=== PATIENT | female | born 2000 | race Caucasian/White ===

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

== ENCOUNTER 2021-12-05 05:26 | Inpatient (IN) ==
--- NOTE | 2021-12-02 14:54 | PAT Medication Instructions ---
Medication Instructions Date of Service December 02, 2021 Home Medications Medication Instructions Recorded ondansetron HCl 4 mg tablet 4 mg PO Q6H PRN #20 tab 07/16/21 (Zofran) prenat.vits,latoya,[id number]-sptlv 1 tab PO DAILY ondansetron HCl 4 mg tablet (Zofran) 4 mg PO Q6H PRN calcium carbonate 300 mg (750 mg) chewable tablet (Tums) 300 mg PO QID PRN DO NOT take the morning of surgery prenat.vits,latoya,dwv-fygh-dbceq 1 tab PO DAILY calcium carbonate 300 mg (750 mg) chewable tablet (Tums) 300 mg PO QID PRN Take morning of surgery With a small sip of water, OTHERWISE NOTHING TO EAT OR DRINK AFTER MIDNIGHT: ondansetron HCl 4 mg tablet (Zofran) 4 mg PO Q6H PRN (if needed) Take evening before surgery ondansetron HCl 4 mg tablet (Zofran) 4 mg PO Q6H PRN (if needed) Other Notes If you have any questions please call us at [phone] or [phone] or [phone] or [phone]
--- NOTE | 2021-12-04 13:23 | Anesthesiology Consultation ---
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 No known Covid positive exposures or Covid related symptoms. No known Covid infection in the past 90 days.Pt is NOT vaccinated for Covid. Preop Covid testing done 12/03/21 = negative. Educated on importance of self quarantining, social distancing and wearing mask in public for the patient one week prior to surgery and after Covid testing done History Surgery Operation Date: 12/05/21 07:30 Proposed Procedures p Section (Delivery of Baby Through Abdominal Incision) - Karol Anderson MD, FACOG Height/Weight Height: 5 ft 3 in Weight: 146.057 kg Allergies Allergy/AdvReac Type Severity Reaction Status Date / Time No Known Drug Allergies Allergy Unknown Verified 12/04/21 11:41 Medications Home Medications Medication Instructions Recorded Confirmed Last Taken prenat.vits,latoya,wfr-ekot-fjdlo 1 tab PO DAILY 05/15/21 12/04/21 11/19/21 ondansetron HCl 4 mg tablet 4 mg PO Q6H PRN #20 tab 07/16/21 12/04/21 Unknown (Zofran) calcium carbonate 300 mg (750 mg) 300 mg PO QID PRN 12/02/21 12/04/21 Unknown chewable tablet (Tums) Past Medical History Medical History JUSTYN (generalized anxiety disorder) GERD (gastroesophageal reflux disease) Stable Chronic (even when not ) Hepatic steatosis History of COVID-04 Oct 2020 > not hospitalized Hypertension Gestational HTN Morbid obesity Exercise / Class Metabolic Activity II 4-5 Yardwork/Stairs/Walk up hill (one flight of stairs - mild SOB (only related), no chest pain ) Past Family History Family History Sister Allergic rhinitis Celiac disease Mother Diabetes Father Asthma Grandmother (Paternal) Hypertension Grandmother (Maternal) Breast cancer Lung cancer Other Dyslipidemia Endometriosis Denies family history of Ovarian cancer Prostate cancer Colorectal cancer Past Surgical History Surgical History No significant past surgical history Past Anesthesia History No Family Hx of Anesthesia Complications History of PONV Hx of Motion Sickness Social History Smoking Status: Never smoker Do You Dip or Chew Tobacco: No Hx Alcohol Use: No Hx Substance Use: No substance use type: does not use Review of Systems Hx of snoring - - no witnessed apnea- no hx of sleep study Patient denies chest pain, shortness of breath, dyspnea on exertion, cough, wheezing, palpitations. No hx of seizures, stroke, [place]. No hx of blood clots or blood transfusions Physical Exam Vital Signs VITALS BP 140/87 P 97 TEMP 98.2 SP02 98% RESP 16 Constitutional no acute distress ENMT Mouth: no TMJ clicking Thyromental Distance: > or= 3.5 Finger Breadths (3.5) Mallampati Class: II Neck + thick neck; neck extension not limited Respiratory normal respiratory effort; no respiratory distress Auscultation: lungs clear to auscultation bilaterally; no wheezes Cardiovascular Rate/Rhythm: regular rate and regular rhythm Heart Sounds: no murmur Vessels: no carotid bruit Musculoskeletal Spine: no pain with cervical ROM Extremities: extremities normal to inspection Psychiatric Orientation: alert
--- NOTE | 2021-12-04 23:00 | History & Physical Report ---
Date of Service December 04, 2021 Assessment & Plan (1) Gestational hypertension: Plan: IUP at 37 weeks that meets criteria for gestational hypertension but infant in persistent breech presentation. she is not interested in external version. the procedure and its risks are reviewed with the patient and all of her questions answered to her satisfaction and she is willing to proceed. (2) Breech presentation: History of Present Illness Primary Care Provider: Noe Mckinney DO Patient is a 21 y white female EDC 12/26/21 who presents at 37 weeks for primary LTCS because of persistent breech presentation and gestational hypertension. GBS -negative. also complicated by LGA fetus, generalized anxiety disorder and morbid obesity. Allergies Allergy/AdvReac Type Severity Reaction Status Date / Time No Known Drug Allergies Allergy Unknown Unknown Verified 12/04/21 14:45 Home Medications Medication Instructions Recorded Confirmed Type prenat.vits,latoya,oxv-jsoj-mpiki 1 tab PO DAILY 05/15/21 12/04/21 History ondansetron HCl 4 mg tablet 4 mg PO Q6H PRN #20 tab 07/16/21 12/04/21 Rx (Zofran) calcium carbonate 300 mg (750 mg) 300 mg PO QID PRN 12/02/21 12/04/21 History chewable tablet (Tums) Patient History Medical History JUSTYN (generalized anxiety disorder) GERD (gastroesophageal reflux disease) Stable Chronic (even when not ) Hepatic steatosis History of COVID-04 Oct 2020 > not hospitalized Hypertension Gestational HTN Morbid obesity Surgical History No significant past surgical history Family History Sister Allergic rhinitis Celiac disease Mother Diabetes Father Asthma Grandmother (Paternal) Hypertension Grandmother (Maternal) Breast cancer Lung cancer Other Dyslipidemia Endometriosis Denies family history of Ovarian cancer Prostate cancer Colorectal cancer Social History Smoking Status: Never smoker Second Hand Exposure: Yes (as kid); Hx Alcohol Use: No Hx Substance Use: No Preferred Language: Uzbek Communication Ability: Effective Visual Impairment: Limited Hearing Ability: Normal Lift Team Technician Required: No Beliefs That Will Affect Care: None marital status: marital status details: Jason (22) [phone] Current Living Situation: Spouse Current Living Situation Comment: lives with spouse, 3 cats, sposue to change litter. 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 How many Children do You have: 0 Feels Safe at Home: Yes Childhood Exposure to Second-Hand Smoke: Yes caffeine: No Dental Care, Regularly: No Physical Activity Frequency: 1-2 Times per Week Seatbelt Use: always Sunscreen Use: No Assistive Devices: Glasses Review of Systems All systems reviewed & are unremarkable except as noted in HPI & below Physical Exam Constitutional: WD/WN, vitals as above Respiratory: normal respiratory effort, lungs clear to auscultation Cardiovascular: RRR, no murmur, no edema Psychiatric: A+Ox3, euthymic affect Genitourinary: OB Exam Abdomen: + fundal height (term /obese), + breech and + estimated weight (8-9 pounds) OB Exam Monitor Tracing: + external FHT monitor used, + external uterine monitor used, + category I and + normal FHT variability Coding Level of Care Code None Diagnoses Gestational hypertension O13.9 Breech presentation O32.1XX0
[2021-12-05] MEDS ORDERED: LACTATED RINGER'S 1,000 ML IV SCH (06:00)
[2021-12-05] MEDS ORDERED: CITRIC ACID/SODIUM CITRATE 15 ML UDC PO SCH (06:00)
[2021-12-05] MEDS ORDERED: ceFAZolin 3,000 MG in DEXTROSE 5% 50 ML IV SCH (06:00)
[2021-12-05 06:37] LABS: Basophils # (auto) 0.01 K/uL (0-0.2); Basophils % (auto) 0.1 %; Eosinophils # (auto) 0.08 K/uL (0-0.5); Eosinophils % (auto) 0.9 %; Hematocrit (blood only) 34.1 % (37-47); Hemoglobin 11.4 g/dL (12.0-16.0); Immature Granulocytes # (auto) 0.02 K/uL (0.00-0.02); Immature Granulocytes % (auto) 0.2 %; Lymphocytes # (auto) 2.29 K/uL (1.2-3.4); Lymphocytes % (auto) 25.6 %; Mean Corpuscular Hemoglobin 29.5 pg (25-34); Mean Corpuscular Hgb Conc 33.4 g/dL (32-36); Mean Corpuscular Volume 88.3 fL (80-100); Mean Platelet Volume 10.3 fL (7.4-10.4); Monocytes # (auto) 0.63 K/uL (0.11-0.59); Neutrophils # (auto) 5.93 K/uL (1.4-6.5); Neutrophils % (auto) 66.2 %; Platelet Count 221 K/uL (130-400); RDW Coefficient of Variation 15.8 % (11.5-14.5); RDW Standard Deviation 51.5 fL (36.4-46.3); Red Blood Count 3.86 M/uL (4.2-5.4); White Blood Count 8.96 K/uL (4.8-10.8)
[2021-12-05] MEDS ORDERED: fentaNYL citrate 100 MCG/2 ML VIAL ONE (07:10)
[2021-12-05] MEDS ORDERED: MoRPHine SULFATE PF 1 MG/ML 10 ML AMP/VIAL ONE (07:10)
--- NOTE | 2021-12-05 07:42 | History & Physical Bridge Note ---
Date of Service December 05, 2021 History & Physical Bridge Note I have examined the patient, reviewed the History & Physical and in the interval since the performance of the History & Physical I have noted the following changes of clinical significance: no changes noted
[2021-12-05] MEDS ORDERED: LIDOCAINE 1% LOCAL 20 ML VIAL ONE (07:58)
[2021-12-05] MEDS ORDERED: HYDROmorphone INJ 0.5 MG/0.5 ML SYR IV PRN (08:18)
[2021-12-05] MEDS ORDERED: NALOXONE HCL 0.08 MG in SYRINGE 1.8 ML IV PRN (08:18)
[2021-12-05] MEDS ORDERED: NALOXONE HCL 0.4 MG/1 ML VIAL/CARP IV PRN (08:18)
[2021-12-05] MEDS ORDERED: NALOXONE HCL 1 MG in SODIUM CHLORIDE 0.9% 1000ML 1,000 ML IV PRN (08:18)
[2021-12-05] MEDS ORDERED: diphenhydrAMINE 50 MG/ML VIAL IV PRN (08:18)
[2021-12-05] MEDS ORDERED: PROMETHAZINE HCL 25 MG in SODIUM CHLORIDE 0.9% 50 ML IV PRN (08:18)
[2021-12-05] MEDS ORDERED: ePHEDrine sulfate 50 MG/ML AMP IV PRN (08:18)
[2021-12-05] MEDS ORDERED: OXYTOCIN 10 UNITS/ML 10ML VIAL ONE (08:18)
[2021-12-05] MEDS ORDERED: ONDANSETRON INJ 2 MG/ML 2 ML VIAL ONE (08:18)
[2021-12-05] MEDS ORDERED: ACETAMINOPHEN 1000 MG/100 ML IV IV PRN (08:18)
[2021-12-05] MEDS ORDERED: NALBUPHINE HCL INJ 10 MG/ML AMP IV PRN (08:18)
[2021-12-05] MEDS ORDERED: ONDANSETRON INJ 2 MG/ML 2 ML VIAL IV PRN (08:18)
[2021-12-05] MEDS ORDERED: MoRPHine SULFATE PF 1 MG/ML 10 ML AMP/VIAL INT SPINAL ONE (08:18)
[2021-12-05] MEDS ORDERED: LACTATED RINGER'S 500 ML IV PRN (08:18)
[2021-12-05] MEDS ORDERED: DC INTRASPINAL MORPHINE SCH (08:30)
[2021-12-05] MEDS ORDERED: SODIUM CHLORIDE 0.9% 1000ML 1,000 ML IV SCH (08:30)
[2021-12-05] MEDS ORDERED: NO NARCOTICS OR SEDATIVES SCH (08:30)
[2021-12-05] MEDS ORDERED: KETOROLAC 30 MG/ML VIAL ONE (08:33)
[2021-12-05] MEDS ORDERED: PROMETHAZINE HCL INJ 25 MG/ML 1 ML VIAL ONE (08:37)
[2021-12-05] MEDS ORDERED: MIDAZOLAM HCL 1 MG/ML 2ML VIAL ONE (08:43)
[2021-12-05 09:06] LABS: Appearance Urine Clear (Clear); Bacteria Urine Automated 2+ (Negative); Bilirubin Urine Negative (Negative); Blood Urine Negative (Negative); Color Urine Yellow; Epithelial Cell Urine Auto >30 /lpf (0-5); Glucose Urine UA Negative (Negative); Ketones Urine Negative (Negative); Leukocyte Esterase Urine Trace (Negative); Nitrite Urine Negative (Negative); Protein Urine Negative (Negative); RBC Urine Automated 0-4 /hpf (0-4); Urobilinogen Urine Negative (Negative); pH Urine 6.5 (4.5-7.5)
--- NOTE | 2021-12-05 09:25 | Operative Report ---
PG Post Operative Report Pre & Post Diagnosis Operation Date: 12/05/21 07:30 Pre-Op Diagnosis: Gestational HTN Breech Presentation Post-Op Diagnosis: Same as Pre op I identified the patient and participated in the time-out.: Yes Procedure Operation Date: 12/05/21 07:30 Actual Procedures p Section in LD; Live male child at 0823(Bilateral) - Karol Yo MD, FACOG Surgeon Karol Anderson MD, FACOG Hand Cigar Making Supervisor Kike Murdock MD and Herminia Christina MD Estimated Blood Loss 500 Findings Consistent with Post-Op Diagnosis bilateral ovaries and tubes are normal. uterus gravid and consistent with term Specimens POC Drains Hopkins catheter to straight drainage - clear urine Anesthesia Type Spinal Complications none Disposition Accompanied Patient To Recovery: Yes Indications Patient is a 21-year-old 1 P0 white female who presents at 37 weeks for primary section because of persistent breech presentation and gestational hypertension. Description of Procedure After patient received adequate subarachnoid block she was prepped and draped in usual sterile fashion. A transverse incision was made at the level of the anterior superior iliac spines. This was carried to the fascia. The fascia was entered with a scalpel and extended with Banks scissors transversely. Rand's clamps were then used to grasp the edges of the fascia and the underlying rectus muscles bluntly and sharply dissected off of the overlying fascia. The rectus muscles were bluntly divided in the midline and the underlying peritoneum also entered bluntly. The bladder was then taken down off the anterior surface of the uterus with Metzenbaum scissors and placed behind the bladder blade. The lower uterine segment was entered with a scalpel and extended transversely. Infant was delivered from the varghese breech presentation with moderate fundal pressure. He was vigorous and crying upon delivery. The cord was then clamped and cut. Placenta was then expressed intact with a three-vessel cord. The uterus was then exteriorized and covered with a clean lap sponge. The uterine cavity was explored and found to be free of any placental tissue or membranes. The uterus was then closed in 2 layers in a running locking imbricating fashion with 0 chromic. Hemostasis was noted to be excellent. After examining the ovaries and tubes the uterus was placed back in the abdominal cavity. The incision was examined once more and continue to have excellent hemostasis. The fascia was then closed in a running fashion with 0 Vicryl. Elvira's fascia was reapproximated using a running stitch of 2-0 chromic. After irrigating the adipose layer, the skin edges were reapproximated using a subcuticular stitch of 4-0 Vicryl. José Luis dressing was then applied to the incision. Urine was clear at the end of the case mother and infant were doing well upon arrival in recovery room. I attest to the content of the Intraoperative Record and any orders documented therein. Any exceptions are noted below. OB Procedure Charges 04339
[2021-12-05] MEDS ORDERED: ACETAMINOPHEN 325 MG TAB PO PRN (10:20)
[2021-12-05] MEDS ORDERED: HYDROCORTISONE ACETATE 25 MG SUPP PR PRN (10:20)
[2021-12-05] MEDS ORDERED: DIPHTHERIA/TETANUS/PERTUSSIS 0.5 ML SYR/VIAL IM ONE (10:20)
[2021-12-05] MEDS ORDERED: MAGNESIUM HYDROXIDE SUSP 30 ML UDC PO PRN (10:20)
[2021-12-05] MEDS ORDERED: SENNA 8.6 MG TAB PO PRN (10:20)
[2021-12-05] MEDS ORDERED: BENZOCAINE 20% AER SPR 82.5 GM CAN EXT PRN (10:20)
[2021-12-05] MEDS: OXYTOCIN 20 UNITS in LACTATED RINGER'S 1,000 ML IV SCH ×2 (11:46→20:35)
--- NOTE | 2021-12-05 11:58 | Anesthesiology Progress Note ---
Date of Service December 05, 2021 Anesthesia Post Procedure Vital Signs Vital Signs: Temp Pulse Resp BP Pulse Ox 12/05/21 11:26 89 99 12/05/21 11:21 93 H 140/82 100 12/05/21 11:16 85 99 12/05/21 11:11 82 98 12/05/21 11:06 90 100 12/05/21 11:01 87 100 12/05/21 10:56 77 142/71 H 100 12/05/21 10:51 79 99 12/05/21 10:46 81 100 12/05/21 10:45 83 20 149/72 H 100 12/05/21 10:42 75 144/75 H 12/05/21 10:41 82 100 12/05/21 10:36 84 100 12/05/21 10:31 81 100 12/05/21 10:26 82 137/78 100 12/05/21 10:21 88 100 12/05/21 10:16 79 138/79 100 12/05/21 10:15 79 20 138/79 100 12/05/21 10:11 75 100 12/05/21 10:07 76 138/95 12/05/21 10:06 79 100 12/05/21 10:05 81 18 138/95 100 12/05/21 10:01 81 100 12/05/21 09:56 77 160/64 H 100 12/05/21 09:55 77 22 160/64 H 100 12/05/21 09:51 82 100 12/05/21 09:47 71 151/78 H 12/05/21 09:46 81 100 12/05/21 09:45 75 16 151/78 H 100 12/05/21 09:41 83 100 12/05/21 09:37 77 143/71 H 12/05/21 09:36 84 100 12/05/21 09:35 81 20 143/71 H 100 12/05/21 09:31 84 100 12/05/21 09:26 79 134/79 100 12/05/21 09:25 79 20 134/79 100 12/05/21 09:21 80 100 12/05/21 09:16 82 100 12/05/21 09:15 36.8 C 80 25 H 134/83 100 12/05/21 05:56 104 H 155/80 H 12/05/21 05:54 36.8 C 108 H 18 182/93 H 12/05/21 05:44 36.8 C 108 H 18 182/93 H Transfer of Care Handoff Completed per policy Notes Mental Status: alert / awake / arousable and participated in evaluation Nausea / Vomiting: adequately controlled Pain: adequately controlled Airway Patency, RR, SpO2: stable & adequate BP & HR: stable & adequate Hydration State: stable & adequate Neuraxial Anesthesia: was administered and sensory block resolved Anesthetic Complications: no major complications apparent and Pt Satisfied with anesthetic care
[2021-12-05] MEDS: KETOROLAC 30 MG/ML VIAL IV PRN (14:02)
[2021-12-05] MEDS: SIMETHICONE 80 MG CHEW PO SCH ×3 (14:03→21:02)
[2021-12-05] MEDS: DOCUSATE SODIUM 100 MG CAP PO SCH (21:02)
[2021-12-06] MEDS: KETOROLAC 30 MG/ML VIAL IV PRN (00:31)
[2021-12-06] MEDS ORDERED: diphenhydrAMINE Capsule 25 MG CAP PO PRN (02:18)
[2021-12-06] MEDS ORDERED: PROMETHAZINE HCL 25 MG in SODIUM CHLORIDE 0.9% 50 ML IV PRN (02:18)
[2021-12-06] MEDS ORDERED: diphenhydrAMINE 50 MG/ML VIAL IV PRN (02:18)
[2021-12-06] MEDS ORDERED: ONDANSETRON INJ 2 MG/ML 2 ML VIAL IV PRN (02:18)
[2021-12-06] MEDS ORDERED: LACTATED RINGER'S 1,000 ML IV SCH (02:30)
[2021-12-06] MEDS ORDERED: CALCIUM CARBONATE 500 MG CHEWABLE TAB PO PRN (04:47)
--- NOTE | 2021-12-06 06:38 | Obstetrical Progress Note ---
Date of Service <Herminia SanfordDO - Last Filed: 12/06/21 07:53> December 06, 2021 Assessment & Plan <Herminia SanfordDO - Last Filed: 12/06/21 07:53> (1) Encounter for care and examination after delivery: (2) Gestational hypertension: 21 yo post op day1 from c/s due to breech presentation, complicated by gHTN, doing well. -Continue routine post care. -vital signs reviewed and WNL (Tmax 36.9) -Blood Type B+, GBS unknown, Rubella immune -Encourage ambulation, monitor and control pain with Motrin, tylenol PRN, resume regular diet, monitor lochia -encourage formula feeding -hemoglobin 11.4 Day #:: 1 <Karol Anderson MD, FACOG - Last Filed: 12/06/21 11:20> (1) Encounter for care and examination after delivery: (2) Gestational hypertension: Subjective <Herminia Christina DO - Last Filed: 12/06/21 07:53> Ambulation: limited ambulation Voiding: voiding difficulty Diet Tolerance:: regular diet Lochia:: Moderate Feeding Type:: bottle feeding Current Pain Level(1-10): 3 Review of Systems Denies fever, chills, sweats Denies shortness of breath, difficulty breathing, chest pain, palpitations, chest pressure. Denies breast pain. Denies dysuria. Denies headache or changes in vision. Physical Exam <Herminia SanfordDO - Last Filed: 12/06/21 07:53> General: Alert, oriented. No acute distress. Cardiac: Regular rate and rhythm, no murmurs/rubs/gallops. Respiratory: Clear to auscultation bilaterally a/p, no wheezes/rales/rhonchi. No increased work of breathing. Symmetrical chest rise. No respiratory distress. Abdomen: Soft, nontender, nondistended. Bowel sounds present. Uterus: Uterine fundus firm, palpable at umbilicus. Surgical scar clean and healing well. Lower Extremities: No lower extremity edema or swelling. No deep calf pain. Lanette's negative bilaterally. Results & Data ([facility]) <Herminia Christina DO - Last Filed: 12/06/21 07:53> Vital Signs (Past 12 Hours) Vital Signs Temp Pulse Resp BP Pulse Ox 12/06/21 04:25 36.9 C 91 H 18 116/82 100 12/06/21 03:52 36.7 C 93 H 18 128/83 100 12/06/21 01:45 18 96 12/06/21 00:45 18 96 12/05/21 23:45 18 98 12/05/21 23:33 36.7 C 93 H 18 117/77 100 12/05/21 22:59 18 95 12/05/21 21:45 95 H 20 L 12/05/21 20:45 18 96 12/05/21 20:40 18 95 12/05/21 19:40 36.7 C 84 16 133/83 95 <Karol Anderson MD, FACOG - Last Filed: 12/06/21 11:20> Co-Signing Physician Notes Resident Physician Supervision Note: I interviewed and examined the patient. Discussed with Dr. Christina and agree with findings and plan as documented in the note. Any exceptions or clarifications are listed here: [None] Documented By: Karol Anderson MD, FACOG Resident Activity Tracking <Herminia Christina DO - Last Filed: 12/06/21 07:53> Resident Involvement: Resident Care Provided Care Provided: Adult Hospital Medicine and OB Delivery
[2021-12-06 06:49] LABS: Basophils # (auto) 0.01 K/uL (0-0.2); Basophils % (auto) 0.1 %; Eosinophils # (auto) 0.09 K/uL (0-0.5); Eosinophils % (auto) 1.1 %; Hematocrit (blood only) 31.3 % (37-47); Hemoglobin 10.5 g/dL (12.0-16.0); Immature Granulocytes # (auto) 0.02 K/uL (0.00-0.02); Immature Granulocytes % (auto) 0.2 %; Lymphocytes # (auto) 1.73 K/uL (1.2-3.4); Lymphocytes % (auto) 20.6 %; Mean Corpuscular Hemoglobin 29.2 pg (25-34); Mean Corpuscular Hgb Conc 33.5 g/dL (32-36); Mean Corpuscular Volume 86.9 fL (80-100); Monocytes # (auto) 0.49 K/uL (0.11-0.59); Monocytes % (auto) 5.8 %; Neutrophils # (auto) 6.07 K/uL (1.4-6.5); Neutrophils % (auto) 72.2 %; Platelet Count 187 K/uL (130-400); RDW Coefficient of Variation 15.6 % (11.5-14.5); RDW Standard Deviation 50.2 fL (36.4-46.3); White Blood Count 8.41 K/uL (4.8-10.8)
[2021-12-06] MEDS: DOCUSATE SODIUM 100 MG CAP PO SCH ×2 (08:37→21:12)
[2021-12-06] MEDS: SIMETHICONE 80 MG CHEW PO SCH ×4 (08:37→21:12)
[2021-12-06] MEDS: FERROUS SULFATE 325 MG TAB PO SCH (08:37)
[2021-12-06] MEDS: PRENATAL VITAMIN 1 TAB PO SCH (08:38)
[2021-12-06] MEDS: oxyCODONE/ACETAMINOPHEN 5mg/325mg TAB PO PRN ×4 (08:38→23:12)
[2021-12-06] MEDS: IBUPROFEN 600 MG TAB PO PRN ×4 (08:38→21:13)
[2021-12-06] MEDS ORDERED: bisacodyL 5 MG TABEC PO SCH (20:00)
[2021-12-07] MEDS: IBUPROFEN 600 MG TAB PO PRN ×5 (05:45→23:15)
[2021-12-07] MEDS: oxyCODONE/ACETAMINOPHEN 5mg/325mg TAB PO PRN ×5 (05:45→23:15)
[2021-12-07 06:38] LABS: Hematocrit (blood only) 33.1 % (37-47); Hemoglobin 10.8 g/dL (12.0-16.0)
[2021-12-07] MEDS ORDERED: bisacodyL 10 MG SUPP PR PRN (08:57)
--- NOTE | 2021-12-07 09:10 | Obstetrical Progress Note ---
Date of Service December 07, 2021 Assessment & Plan (1) Encounter for care and examination after delivery: Wishes to stay until POD#3 and have GAIL removed in office on POD#7 (2) Gestational hypertension: Subjective Ambulation: ambulating normally Voiding: no voiding problems Passing Gas:: Yes Diet Tolerance:: regular diet Lochia:: Small Feeding Type:: bottle feeding Current Pain Level(1-10): 0 Physical Exam Constitutional WD/WN, vitals as above Eyes PERRL, conjunctivae normal, anicteric sclerae ENMT external ear and nose normal, oropharynx normal Neck trachea midline, no thyromegaly Respiratory normal respiratory effort and able to speak in complete sentences; no respiratory distress, no labored breathing and does not use accessory muscles Cardiovascular Rate/Rhythm: regular rate and regular rhythm Extremities: no calf tenderness and no pedal edema Chest (Breasts) Breast: normal inspection of breasts Gastrointestinal (Abdomen) Inspection/Auscultation: abdomen normal to inspection; abdomen not distended c/d/i with GAIL in place Musculoskeletal no cyanosis or clubbing, extremities motor strength 5/5 Skin no rashes, warm and dry Neurologic patellar DTR's 2+ bilat, sensation intact Psychiatric A+Ox3, euthymic affect Genitourinary Speculum/Bimanual Exam: uterus nontender OB Exam Abdomen: + fundal height (at umbilicus) Fundus: + firm Results & Data ([facility]) Vital Signs (Past 12 Hours) Vital Signs Temp Pulse Resp BP Pulse Ox 12/07/21 07:15 98.4 F 99 H 18 123/81 99 12/06/21 23:07 98.4 F 93 H 18 125/81 99
[2021-12-07] MEDS: FERROUS SULFATE 325 MG TAB PO SCH (09:32)
[2021-12-07] MEDS: SIMETHICONE 80 MG CHEW PO SCH ×4 (09:32→20:21)
[2021-12-07] MEDS: PRENATAL VITAMIN 1 TAB PO SCH (09:33)
[2021-12-07] MEDS: DOCUSATE SODIUM 100 MG CAP PO SCH ×2 (09:33→20:21)
[2021-12-08] MEDS: IBUPROFEN 600 MG TAB PO PRN ×2 (04:04→07:56)
[2021-12-08] MEDS: oxyCODONE/ACETAMINOPHEN 5mg/325mg TAB PO PRN ×2 (04:04→07:55)
--- NOTE | 2021-12-08 07:19 | Obstetrical Progress Note ---
Date of Service December 08, 2021 Assessment & Plan (1) Encounter for care and examination after delivery: POD#3 doing well. Plans for DC home today - discussed instructions. Rx Percocet #20 tabs to pharmacy on file. Followup 6w PP. Subjective Ambulation: ambulating normally Voiding: no voiding problems Diet Tolerance:: regular diet Lochia:: Moderate Review of Systems All systems reviewed & are unremarkable except as noted in HPI & below Physical Exam Constitutional WD/WN, vitals as above no acute distress Respiratory normal respiratory effort Cardiovascular Rate/Rhythm: regular rate and regular rhythm Gastrointestinal (Abdomen) Inspection/Auscultation: abdomen normal to inspection; abdomen not distended Percussion/Palpation: abdomen soft GAIL dressing in place, CDI Genitourinary OB Exam Abdomen: + fundal height Fundus: + firm; not tender Results & Data ([facility]) Vital Signs (Past 12 Hours) Vital Signs Temp Pulse Resp BP Pulse Ox 12/07/21 22:57 37.6 C H 107 H 18 131/85 100 12/07/21 19:25 36.9 C 102 H 20 137/77
[2021-12-08] MEDS: SIMETHICONE 80 MG CHEW PO SCH (07:55)
[2021-12-08] MEDS: FERROUS SULFATE 325 MG TAB PO SCH (07:55)
[2021-12-08] MEDS: PRENATAL VITAMIN 1 TAB PO SCH (07:55)
[2021-12-08] MEDS: DOCUSATE SODIUM 100 MG CAP PO SCH (07:55)
--- NOTE | 2021-12-10 10:33 | Discharge Summary (DS) ---
DATE OF ADMISSION: 12/05/2021 DATE OF DISCHARGE: 12/08/2021 PRINCIPAL DIAGNOSES: Intrauterine at 37+ weeks, gestational hypertension and persistent breech presentation with a large for gestational age baby. HISTORY AND HOSPITAL COURSE: The patient is a 21-year-old 1, para 0 white female who presented at 37 weeks for primary section because of persistent breech presentation and gestational hypertension. She underwent a low transverse cervical section without any complications for delivery of an 8 pound 15 ounce male infant from the breech presentation. She had an uncomplicated postop course. She was eating regular diet on her first postop day, ambulating and voiding without difficulty as well. She remained afebrile throughout her hospital stay. Hemoglobin on admission was 11.4, hematocrit 34.1 with a white count of 8960. First postop day, hemoglobin 10.5, hematocrit 31.3 with a white count of 8400. Second postop day, hemoglobin 10.8, hematocrit 33.1. She was sent home in good condition with prescriptions for Percocet 1-2 tablets p.o. q.4 hours p.r.n. pain, Motrin 600 mg p.o. q.4 hours p.r.n. pain. She will have her GAIL dressing removed in the office in 7 days per her request. She is then to be seen in the office in 6 weeks for a followup visit. She is to call for a temperature of 101 degrees or higher, heavy vaginal bleeding, burning with urination, increased redness, drainage or pain in her incision, calf tenderness, any preeclampsia type symptoms or any other concerns. Job ID: [id number] [facility]
== END 2021-12-08 10:50 | disposition home or self-care (01) | DRG 788 ==
LOC: 4S1 05:26 → EDSTATUS 09:00 → 4E2 11:45

== ENCOUNTER 2024-09-28 05:14 | Inpatient (IN) ==
--- NOTE | 2024-09-15 10:50 | Anesthesiology Consultation ---
Date of Service September 15, 2024 Assessment & Plan (1) Encounter for pre-operative examination: Infectious disease screening: Per assessment on 09/15/24- No known recent infectious disease contacts or current infectious disease symptoms. 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 Surgery Operation Date: 09/28/24 07:30 Proposed Procedures p Section (Delivery of Baby Through Abdominal Incision) - Sakina King MD Height/Weight Height: 5 ft 3 in Weight: 147.418 kg Allergies Allergy/AdvReac Type Severity Reaction Status Date / Time No Known Drug Allergies Allergy Unknown Unknown Verified 09/15/24 10:16 Medications Home Medications Medication Instructions Recorded Confirmed Last Taken [id number] 400 mcg-om3 35 mg-dha 25 1 tab PO QAM 02/07/24 09/15/24 Unknown mg-epa 5 mg-fish oil chewable tablet aspirin 81 mg capsule 81 mg PO DAILY 07/28/24 09/15/24 Unknown acetone (urine) test (Ketone Urine #50 ea 08/17/24 09/08/24 Unknown Test strips) blood sugar diagnostic (OneTouch #150 ea 08/17/24 09/08/24 Unknown Verio test strips) blood-glucose meter (OneTouch #1 ea 08/17/24 09/08/24 Unknown Verio Reflect Meter) lancets 33 gauge (OneTouch Delica #150 ea 08/17/24 09/08/24 Unknown Plus Lancet) calcium carbonate (Tums) 200 mg PO BID PRN Acid Reflux 09/15/24 09/15/24 Unknown Past Medical History Medical History Anxiety Cholecystitis, chronic h/o GERD (gastroesophageal reflux disease) Stable Chronic (even when not ) Gestational diabetes diet controlled Gestational hypertension Hepatic steatosis History of COVID-04 Oct 2020 > not hospitalized Morbid obesity Past Family History Family History Sister Allergic rhinitis Celiac disease Mother Diabetes Father Asthma Grandmother (Paternal) Hypertension Grandmother (Maternal) Breast cancer Lung cancer Other Dyslipidemia Endometriosis No family history of adverse response to anesthesia Denies family history of Ovarian cancer Prostate cancer Myocardial infarction Colorectal cancer Stroke Past Surgical History Surgical History S/P section Social History Smoking Status: Never smoker Do You Dip or Chew Tobacco: No Hx Alcohol Use: No Hx Substance Use: No substance use type: does not use Lab Results Anesthesia Preop Results Results Anesthesia Widget: Hgb 11.2 g/dl (12.0-16.0) L 07/21/24 Hct 33.3 % (37.0-47.0) L 07/21/24 Testing Echocardiogram Date: 10/31/20 EF 55-60%. No RWMA. No signficant valvular disease. "Normal echocardiogram."
[2024-09-28] MEDS ORDERED: SODIUM CHLORIDE 0.9% 50 ML IV PRN (05:22)
[2024-09-28] MEDS ORDERED: SODIUM CHLORIDE 0.9% 100 ML IV PRN (05:22)
[2024-09-28] MEDS ORDERED: SODIUM CHLORIDE 0.9% 1,000 ML IV SCH ×3 (06:00→09:27)
[2024-09-28] MEDS ORDERED: CITRIC ACID/SODIUM CITRATE 15 ML UDC PO SCH (06:00)
[2024-09-28] MEDS ORDERED: ACETAMINOPHEN 500 MG TAB PO SCH (06:00)
[2024-09-28 06:05] LABS: Appearance Urine Clear (Clear); Bacteria Urine Automated 1+ (None Seen); Bilirubin Urine Negative (Negative); Blood Urine 1+ (Negative); Cast Urine Automated 0-2 /lpf (0-2); Color Urine Yellow; Epithelial Cell Urine Auto 0-2 /hpf (0-2); Glucose Urine UA Negative (Negative); Ketones Urine Negative (Negative); Leukocyte Esterase Urine Negative (Negative); Nitrite Urine Negative (Negative); Protein Urine Negative (Negative); RBC Urine Automated 0-2 /hpf (0-2); Urobilinogen Urine Negative (Negative); WBC Urine Automated 0-5 /hpf (0-5); pH Urine 6.5 (4.5-7.5)
[2024-09-28] MEDS: LACTATED RINGER'S 1,000 ML IV SCH (06:07)
[2024-09-28 06:13] LABS: Hematocrit (blood only) 33.6 % (37.0-47.0); Red Blood Count 4.05 M/uL (4.20-5.40); White Blood Count 8.13 K/ul (4.8-10.8)
[2024-09-28 06:14] LABS: Basophils # (auto) 0.01 K/uL (0.00-0.20); Basophils % (auto) 0.1 %; Eosinophils # (auto) 0.06 K/uL (0.00-0.50); Eosinophils % (auto) 0.7 %; Immature Granulocytes # (auto) 0.04 K/uL (0.01-0.20); Immature Granulocytes % (auto) 0.5 %; Lymphocytes # (auto) 1.35 K/uL (1.20-3.40); Lymphocytes % (auto) 16.6 %; Mean Corpuscular Hemoglobin 27.2 pg (25.0-34.0); Mean Corpuscular Hgb Conc 32.7 g/dL (32.0-36.0); Mean Platelet Volume 9.9 fL (9.4-12.4); Monocytes # (auto) 0.45 K/uL (0.11-0.59); Monocytes % (auto) 5.5 %; Neutrophils # (auto) 6.22 K/uL (1.40-6.50); Neutrophils % (auto) 76.6 %; Platelet Count 202 K/uL (130-400); RDW Coefficient of Variation 16.3 % (11.5-14.5); RDW Standard Deviation 48.8 fL (36.4-46.3)
[2024-09-28] MEDS: ACETAMINOPHEN 500 MG TAB PO SCH (06:25)
[2024-09-28] MEDS ORDERED: LACTATED RINGER'S 1,000 ML IV SCH ×3 (06:30→09:27)
--- NOTE | 2024-09-28 07:17 | History & Physical Bridge Note ---
Date of Service September 28, 2024 History & Physical Bridge Note I have examined the patient, reviewed the History & Physical and in the interval since the performance of the History & Physical I have noted the following changes of clinical significance: no changes noted
[2024-09-28] MEDS: CITRIC ACID/SODIUM CITRATE 15 ML UDC PO SCH (07:33)
[2024-09-28] MEDS: ceFAZolin 3,000 MG/72.5 ML BAG IV SCH (07:33)
[2024-09-28] MEDS ORDERED: MoRPHine SULFATE PF 1 MG/ML 10 ML AMP/VIAL ONE (07:36)
[2024-09-28] MEDS ORDERED: PHENYLEPHRINE HCL 25 MG/250 ML NSS IV ONE (07:36)
[2024-09-28] MEDS ORDERED: OXYTOCIN 10 UNITS/ML VIAL ONE ×2 (08:08→08:15)
[2024-09-28] MEDS ORDERED: ONDANSETRON INJ 2 MG/ML 2 ML VIAL ONE ×2 (08:11→08:15)
[2024-09-28] MEDS: OXYTOCIN 20 UNITS/LR 1,002 ML IV SCH (08:50)
--- NOTE | 2024-09-28 08:52 | Operative Report ---
PG Post Operative Report Pre & Post Diagnosis Operation Date: 09/28/24 07:30 SIUP at Term Prior Declines TOLAC/ I identified the patient and participated in the time-out.: Yes Procedure Operation Date: 09/28/24 07:30 Repeat Low Transverse Section Surgeon Sakina King MD Wreath And Garland Maker Kay Estimated Blood Loss 428 Findings Consistent with Post-Op Diagnosis Specimens Placenta, cord blood Anesthesia Type Spinal Complications none Disposition Accompanied Patient To Recovery: Yes Disposition: L&D Description of Procedure The patient was placed operating table in the supine position with a leftward tilt. She was prepped and draped in standard sterile fashion. A Pannus Retractor was used. The anesthetic was tested and found to be adequate. A time-out was held, identifying correct patient, procedure, positioning and preoperative antibiotics. There were no concerns. A Pfannenstiel skin incision was made with a knife at the appropriate location based on palpation of the ASIS bilaterally, and taken down to the underlying l juan of fascia. Incision was created through the stick-on drape without freeing it from either edge of the skin, to prevent loss of fluids onto the padding beneath the patient and ensure QBL measurement would be complete. The fascia was incised in the midline with the knife and taken out laterally with scissors. The superior edge of the fascial incision was grasped, elevated and dissected off the underlying rectus both superiorly and inferiorly. The muscles were bluntly in the midline. The peritoneum was entered bluntly. The incision was then stretched. After palpation of the abdominal cavity to ensure there were no adhesions, an Micheal O-Ring retractor was deployed. The bladder retractor was placed. The vesicouterine peritoneum was identified, entered with scissors and taken out laterally with scissors. The bladder flap was created digitally. A hysterotomy incision was created transversely in the lower uterine segment, final entry being accomplished in a blunt manner with the ore bridge operator's fingers. Clear amniotic fluid was encountered. The ore bridge operator's hand was used to elevate the head to the hysterotomy. The head was delivered using mild fundal pressure, a shoulder cord was reduced, and the shoulders and body followed without difficulty. The cord was clamped and cut and the infant was then handed off to the awaiting supervisor ditching. A true knot was present in the cord, but was loose. Cord blood was obtained. The placenta was Manually extracted. The uterus was cleared of all clot and debris with moistened laparotomy sponges and ring forceps. The hysterotomy incision was repaired in a running locked layer with good hemostasis. The gutters were cleared of clot and debris. The Micheal O-ring was removed. Note that during repair of the hysterotomy patient was vomiting frequently which made closure difficult, especially after removal of the O-ring. A final inspection of the hysterotomy as able to be completed with packing sponges and Martinez retractors, and revealed good hemostasis. The rectus muscles were allowed to reapproximate naturally. The fascia was then reapproximated with 1 Vicryl in a running nonlocked manner with use of a "fish" retractor to prevent the repeated protrusion of omental tissue through the incision during closure. The fascia was examined and found to be free of defect following closure. The subcutaneous tissue was copiously irrigated with 300cc NSS, and reapproximated with 0- chromic, then the skin edges were closed with 4-0 monocryl in a subcuticular fashion. A GAIL dressing was applied. The khoury was found to be draining clear yellow urine at completion of the procedure. I attest to the content of the Intraoperative Record and any orders documented therein. Any exceptions are noted below. I attest to the content of the Intraoperative Record and any orders documented therein. Any exceptions are noted below. OB Procedure Charges 01203
[2024-09-28] MEDS ORDERED: NALBUPHINE HCL INJ 10 MG/ML AMP IV PRN (09:02)
[2024-09-28] MEDS ORDERED: NALOXONE HCL 0.4 MG/1 ML VIAL/CARP IV PRN (09:02)
[2024-09-28] MEDS ORDERED: oxyCODONE HCL IR 5 MG TAB (IMMEDIATE RELEASE) PO PRN ×2 (09:02→09:27)
[2024-09-28] MEDS ORDERED: NALOXONE HCL 0.08 MG in SYRINGE 1.8 ML IV PRN (09:02)
[2024-09-28] MEDS ORDERED: MoRPHine SULFATE 2 MG/ML CARP IV PRN (09:02)
[2024-09-28] MEDS ORDERED: NALOXONE HCL 1 MG in SODIUM CHLORIDE 0.9% 1,000 ML IV PRN (09:02)
[2024-09-28] MEDS ORDERED: ePHEDrine sulfate 50 MG/ML AMP IV PRN ×2 (09:02)
[2024-09-28] MEDS ORDERED: MEPERIDINE HCL 25 MG/ML CARP/VIAL IV PRN (09:02)
[2024-09-28] MEDS ORDERED: HYDROmorphone INJ 0.5 MG/0.5 ML SYR IV PRN (09:02)
[2024-09-28] MEDS ORDERED: ATROPINE SULFATE 0.1 MG/ML 10ML SYR IV PRN (09:02)
[2024-09-28] MEDS ORDERED: ACETAMINOPHEN 1,000 MG/100 ML VIAL IV PRN (09:02)
[2024-09-28] MEDS ORDERED: DROPERIDOL 5 MG/2 ML VIAL IV PRN (09:02)
[2024-09-28] MEDS ORDERED: ONDANSETRON INJ 2 MG/ML 2 ML VIAL IV PRN ×2 (09:02→09:27)
[2024-09-28] MEDS ORDERED: DC INTRASPINAL MORPHINE SCH (09:15)
[2024-09-28] MEDS ORDERED: NO NARCOTICS OR SEDATIVES SCH (09:15)
[2024-09-28] MEDS: KETOROLAC 30 MG/ML VIAL IV PRN (09:20)
[2024-09-28] MEDS: OXYTOCIN 20 UNITS/1002ML LR IV ONE (09:23)
[2024-09-28] MEDS ORDERED: SENNA 8.6 MG TAB PO PRN (09:27)
[2024-09-28] MEDS ORDERED: MAGNESIUM HYDROXIDE SUSP 30 ML UDC PO PRN (09:27)
[2024-09-28] MEDS ORDERED: diphenhydrAMINE 50 MG/ML VIAL IV PRN (09:27)
[2024-09-28] MEDS ORDERED: BENZOCAINE 20% SPRY 85 APPLN/85 GM CAN EXT PRN (09:27)
[2024-09-28] MEDS ORDERED: HYDROCORTISONE ACETATE 25 MG SUPP PR PRN (09:27)
[2024-09-28] MEDS: diphenhydrAMINE 50 MG/ML VIAL IV PRN (10:25)
[2024-09-28] MEDS: DIPHTHER/TETAN/PERTUS Vaccine (Tdap, Adol/Adult) 0.5mL IM ONE (11:09)
[2024-09-28] MEDS: MoRPHine SULFATE PF 1 MG/ML 10 ML AMP/VIAL INT SPINAL ONE (11:14)
[2024-09-28] MEDS ORDERED: PROMETHAZINE 12.5 MG/50.5 ML BAG IV PRN (11:52)
[2024-09-28] MEDS ORDERED: ACETAMINOPHEN 325 MG TAB PO SCH ×2 (14:45→18:00)
[2024-09-28] MEDS: KETOROLAC 30 MG/ML VIAL IV SCH (15:31)
[2024-09-28] MEDS: ACETAMINOPHEN 325 MG TAB PO SCH (15:32)
[2024-09-28] MEDS: SIMETHICONE 80 MG CHEW PO SCH (15:33)
--- NOTE | 2024-09-28 16:18 | Anesthesiology Progress Note ---
Date of Service September 28, 2024 Anesthesia Post Procedure Vital Signs Vital Signs: Temp Pulse Pulse Resp BP BP Pulse Ox 09/28/24 14:02 16 100 09/28/24 14:00 36.6 C 83 18 118/78 100 09/28/24 13:30 18 100 09/28/24 12:40 36.7 C 79 18 125/78 99 09/28/24 12:30 18 99 09/28/24 11:35 20 100 09/28/24 11:35 09/28/24 11:35 09/28/24 11:22 100 H 100 09/28/24 11:20 36.7 C 09/28/24 11:17 84 138/89 100 09/28/24 11:12 83 100 09/28/24 11:07 90 135/89 100 09/28/24 11:02 81 100 09/28/24 10:57 73 138/79 100 09/28/24 10:52 84 100 09/28/24 10:50 36.7 C 18 09/28/24 10:47 89 133/75 100 09/28/24 10:42 81 100 09/28/24 10:37 81 139/66 100 09/28/24 10:32 66 99 09/28/24 10:27 80 140/69 100 09/28/24 10:22 82 99 09/28/24 10:20 18 09/28/24 10:17 92 H 99 09/28/24 10:12 81 99 09/28/24 10:07 86 139/70 99 09/28/24 10:02 83 99 09/28/24 09:57 88 157/71 H 98 09/28/24 09:52 79 98 09/28/24 09:50 36.7 C 20 09/28/24 09:47 83 146/73 H 99 09/28/24 09:42 81 98 09/28/24 09:41 18 09/28/24 09:37 98 09/28/24 09:37 87 09/28/24 09:37 88 145/76 H 09/28/24 09:32 91 H 98 09/28/24 09:27 93 H 152/79 H 97 09/28/24 09:22 82 97 09/28/24 09:20 16 09/28/24 09:17 87 157/79 H 98 09/28/24 09:12 76 98 09/28/24 09:10 18 09/28/24 09:07 98 09/28/24 09:07 87 09/28/24 09:07 86 152/79 H 09/28/24 09:02 79 97 09/28/24 08:57 84 150/63 H 98 09/28/24 08:52 86 98 09/28/24 08:47 82 98 09/28/24 08:46 81 147/73 H 09/28/24 06:57 86 139/79 09/28/24 05:45 36.8 C 96 H 18 133/78 09/28/24 05:40 36.8 C 96 H 18 133/78 Pulse Ox O2 Del Method O2 Del Method 09/28/24 14:02 09/28/24 14:00 Room Air 09/28/24 13:30 09/28/24 12:40 Room Air 09/28/24 12:30 09/28/24 11:35 09/28/24 11:35 Room Air 09/28/24 11:35 100 Room Air 09/28/24 11:22 09/28/24 11:20 09/28/24 11:17 09/28/24 11:12 09/28/24 11:07 09/28/24 11:02 09/28/24 10:57 09/28/24 10:52 09/28/24 10:50 09/28/24 10:47 09/28/24 10:42 09/28/24 10:37 09/28/24 10:32 09/28/24 10:27 09/28/24 10:22 09/28/24 10:20 09/28/24 10:17 09/28/24 10:12 09/28/24 10:07 09/28/24 10:02 09/28/24 09:57 09/28/24 09:52 09/28/24 09:50 09/28/24 09:47 09/28/24 09:42 09/28/24 09:41 09/28/24 09:37 09/28/24 09:37 09/28/24 09:37 09/28/24 09:32 09/28/24 09:27 09/28/24 09:22 09/28/24 09:20 09/28/24 09:17 09/28/24 09:12 09/28/24 09:10 09/28/24 09:07 09/28/24 09:07 09/28/24 09:07 09/28/24 09:02 09/28/24 08:57 09/28/24 08:52 09/28/24 08:47 09/28/24 08:46 09/28/24 06:57 09/28/24 05:45 09/28/24 05:40 Pain Intensity Bilateral Abdomen: Pain Intensity: 2 Transfer of Care Handoff Completed per policy Notes Mental Status: alert / awake / arousable and participated in evaluation Patient Amnestic to Procedure: Yes Nausea / Vomiting: adequately controlled Pain: adequately controlled Airway Patency, RR, SpO2: stable & adequate BP & HR: stable & adequate Hydration State: stable & adequate Anesthetic Complications: no major complications apparent
[2024-09-28] MEDS ORDERED: DOCUSATE SODIUM 100 MG CAP PO SCH (21:00)
[2024-09-28] MEDS: DOCUSATE SODIUM 100 MG CAP PO SCH (21:32)
[2024-09-29] MEDS ORDERED: PROMETHAZINE 12.5 MG/50.5 ML BAG IV PRN (03:02)
[2024-09-29] MEDS ORDERED: diphenhydrAMINE 50 MG/ML VIAL IV PRN (03:02)
[2024-09-29] MEDS ORDERED: ONDANSETRON INJ 2 MG/ML 2 ML VIAL IV PRN (03:02)
[2024-09-29] MEDS ORDERED: HYDROmorphone INJ 0.5 MG/0.5 ML SYR IV PRN (03:02)
[2024-09-29] MEDS ORDERED: diphenhydrAMINE Capsule 25 MG CAP PO PRN (03:02)
[2024-09-29 07:19] LABS: Basophils # (auto) 0.01 K/uL (0.00-0.20); Basophils % (auto) 0.1 %; Eosinophils # (auto) 0.08 K/uL (0.00-0.50); Hematocrit (blood only) 31.8 % (37.0-47.0); Hemoglobin 10.5 g/dl (12.0-16.0); Immature Granulocytes # (auto) 0.03 K/uL (0.01-0.20); Immature Granulocytes % (auto) 0.4 %; Lymphocytes # (auto) 1.24 K/uL (1.20-3.40); Lymphocytes % (auto) 15.5 %; Mean Corpuscular Hemoglobin 27.4 pg (25.0-34.0); Mean Platelet Volume 10.4 fL (9.4-12.4); Monocytes # (auto) 0.37 K/uL (0.11-0.59); Monocytes % (auto) 4.6 %; Neutrophils # (auto) 6.25 K/uL (1.40-6.50); Neutrophils % (auto) 78.4 %; Platelet Count 186 K/uL (130-400); RDW Coefficient of Variation 16.7 % (11.5-14.5); RDW Standard Deviation 49.8 fL (36.4-46.3); Red Blood Count 3.83 M/uL (4.20-5.40); White Blood Count 7.98 K/ul (4.8-10.8)
--- NOTE | 2024-09-29 07:26 | Obstetrical Progress Note ---
Date of Service September 29, 2024 Assessment & Plan (1) delivery delivered: Plan: 24 years P2, 1st POD following delivery for repeat CS. Both mom and baby doing well. Continue care as per protocol. Encouraged nursing with mother's milk. Encouraged ambulation. Encouraged deep breathing. Admission and Anticipated Discharge Date Admission Date: September 28, 2024 Supervising Physician Co-Signing Physician Notes Resident Physician Supervision Note: I interviewed and examined the patient. Discussed with Dr. mishra and agree with findings and plan as documented in the note. Any exceptions or clarifications are listed here: [ ] Documented By: Sakina King MD, FACOG Subjective 24 years P2, 1st POD following delivery for repeat CS. No active complains Both mom and baby doing well. Mom Lying comfortable on bed. Pain: Mild, intermittent, manageable on painkillers. Lochia: Moderate Diet: Regular OB diet No abdominal distension Peeing: Passed Urine after khoury's removal Ambulation: to Bathroom/ Corridor without any complication Answered her queries. Review of Systems Review of Systems: No SOB, chest pain, leg pain No dizziness, headache, palpitation No Blurring of vision , fever Physical Exam Physical Exam: General: Alert and oriented. No acute distress. CVS: S1 S2+ No murmurs, regular rhythm. Respiratory: CTA bilaterally. No rhonchi, wheezes, or crackles. No increased work of breathing. Abdomen: Bowel sound +. Soft, nontender Uterus: Fundus firm and palpable few cm below the umbilicus. Incision site looks healthy: Dry, No swelling, Erythema Lower extremities: No LE edema. No deep calf pain. Results & Data Vital Signs (Past 12 Hours) Vital Signs Temp Pulse Resp BP Pulse Ox O2 Del Method 09/29/24 04:05 18 98 09/29/24 03:21 36.6 C 69 18 105/70 100 Room Air 09/29/24 03:00 16 98 09/29/24 02:00 16 96 09/29/24 01:00 18 98 09/29/24 00:10 16 98 09/28/24 22:49 36.6 C 67 18 125/79 100 Room Air 09/28/24 22:41 16 100 09/28/24 21:30 18 100 09/28/24 20:30 18 96 09/28/24 20:30 36.5 C 71 18 116/74 100 Room Air Resident Activity Tracking Resident Involvement: Resident Care Provided Care Provided: OB Delivery
[2024-09-29] MEDS ORDERED: FERROUS SULFATE 325 MG TAB PO SCH (08:00)
[2024-09-29] MEDS: CALCIUM CARBONATE 500 MG CHEWABLE TAB PO PRN (08:02)
[2024-09-29] MEDS: FERROUS SULFATE 325 MG TAB PO SCH (08:03)
[2024-09-29] MEDS: PRENATAL VITAMIN 1 TAB PO SCH (08:03)
[2024-09-29] MEDS ORDERED: KETOROLAC 30 MG/ML VIAL IV PRN (08:27)
[2024-09-29] MEDS: IBUPROFEN 600 MG TAB PO SCH (11:11)
[2024-09-29] MEDS ORDERED: IBUPROFEN 600 MG TAB PO SCH (12:00)
[2024-09-29] MEDS: oxyCODONE HCL IR 5 MG TAB (IMMEDIATE RELEASE) PO PRN (18:28)
[2024-09-29] MEDS ORDERED: bisacodyL 5 MG TABEC PO SCH (20:00)
[2024-09-29] MEDS: bisacodyL 5 MG TABEC PO SCH (21:06)
[2024-09-29 21:55] VITALS: RESP 18
[2024-09-30 07:29] VITALS: BP 132/83; PULSE 85; TEMP 97.7; O2SAT 100
--- NOTE | 2024-09-30 07:34 | Obstetrical Progress Note ---
Date of Service September 30, 2024 Assessment & Plan (1) delivery delivered: Plan: 24 years P2, 2nd POD following delivery for repeat CS. Both mom and baby doing well. Can discharge today. She will decide this afternoon. Admission and Anticipated Discharge Date Admission Date: September 28, 2024 Supervising Physician Co-Signing Physician Notes Resident Physician Supervision Note: I interviewed and examined the patient. Discussed with Dr. Hernandez and agree with findings and plan as documented in the note. Any exceptions or clarifications are listed here: POD#2 doing well, anticipate likely DC home today, reviewed PP instructions and followup for GAIL removal 1w from delivery and then again 6w in office. Documented By: Deloris Cleaning, Subjective 24 years P2, 2nd POD following delivery for repeat CS. No active complains Both mom and baby doing well. Mom Lying comfortable on bed. Pain: Mild, intermittent, manageable on painkillers. Lochia: Moderate Diet: Regular OB diet No abdominal distension Peeing: Passed Urine after khoury's removal Ambulation: without any complication Answered her queries. Review of Systems Review of Systems: No SOB, chest pain, leg pain No dizziness, headache, palpitation No Blurring of vision , fever Physical Exam Physical Exam: General: Alert and oriented. No acute distress. CVS: S1 S2+ No murmurs, regular rhythm. Respiratory: CTA bilaterally. No rhonchi, wheezes, or crackles. No increased work of breathing. Abdomen: Bowel sound +. Soft, nontender Uterus: Fundus firm and palpable few cm below the umbilicus. Incision site looks healthy: Dry, No soakage. Lower extremities: No LE edema. No deep calf pain. Results & Data Vital Signs (Past 12 Hours) Vital Signs Temp Pulse Resp BP Pulse Ox O2 Del Method 09/30/24 07:27 36.5 C 85 18 132/83 100 Room Air 09/30/24 00:00 36.9 C 89 18 137/80 99 Room Air 09/29/24 20:45 Room Air 09/29/24 20:45 36.4 C L 82 18 122/78 99 Room Air Resident Activity Tracking Resident Involvement: Resident Care Provided Care Provided: OB Delivery
[2024-09-30] MEDS ORDERED: bisacodyL 10 MG SUPP PR PRN (08:27)
[2024-09-30] MEDS ORDERED: IBUPROFEN 600 MG TAB PO PRN (08:27)
[2024-09-30 08:53] LABS: Hemoglobin 9.7 g/dl (12.0-16.0)
[2024-09-30] MEDS ORDERED: ACETAMINOPHEN 325 MG TAB PO PRN (14:27)
--- NOTE | 2024-10-02 14:27 | Coding Query ---
CODING QUERY To promote full compliance with coding requirements relating to patient care, provider participation is requested in all cases of icd 9 coder uncertainty. Please assist us with the question(s) below: Coding Question(s): please document weeks of gestation Physician's Response(s): 3rd trimester Thank you Sakina Ordoñez Principal Diagnosis: "that condition established after study, to be chiefly responsible for occasioning the admission of the patient to the hospital for care." Co-Existing Principal Diagnosis: "when two or more diagnoses equally meet the criteria for principal diagnosis as determined by the circumstances of admission, diagnostic work up, and/or therapy provided, and the Alphabetic Index, Tabular List, or another coding guideline does not provide sequencing direction, any one of the diagnoses may be sequenced first." "When the physician has documented what appears to be a current diagnosis in the body of the record, but has not included the diagnosis in the final diagnostic statement, the physician should be asked whether the diagnosis should be added." (Source Coding [facility] 2 QTR90. p3-4) CURRY
--- NOTE | 2024-10-04 11:42 | Discharge Summary ---
Date of Service October 04, 2024 Discharge Data Consultations 09/28/24 05:19 Consult Anesthesiology Stat Procedures Performed Operation Date: 09/28/24 07:30 Actual Procedures p Section (Delivery of Baby Live male child at 0807 Through Abdominal Incision) - Sakina King MD Hospital Course (1) delivery delivered: 24 years P2, delivery for repeat CS. Discharged POD2 in good condition with usual follow up plan in office. Coding Level of Care Code None Diagnoses delivery delivered O82
== END 2024-09-30 10:30 | disposition home or self-care (01) | DRG 788 ==
LOC: 4S1 05:14 → EDSTATUS 07:30 → 4E2 11:40